=== PATIENT | female | born 1975 | race Caucasian/White ===

== ENCOUNTER 2019-07-30 10:03 | Emergency (ER) | payer MEDICARE ==
[2019-07-30 10:45] VITALS: BP 150/92
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
--- NOTE | 2019-08-02 07:22 | UC ---
- Progress Note Progress Note: Urine culture from July 30, 2019 comes back with the results of mixed a pond extended incubation suggest recent admission. Nursing to call patient and let them know we were unable to obtain a urine culture. If she continues to be symptomatic and have not had follow-up with another medical provider we would recommend resubmitting a urine for culture. Course/Dx - Diagnoses Provider Diagnoses: Soft tissue mass Discharge ED - Sign-Out/Discharge Documenting (check all that apply): Patient Departure All imaging exams completed and their final reports reviewed: No Studies - Discharge Plan Condition: Fair Disposition: HOME Patient Education Materials: Soft Tissue Mass (ED) Referrals: [facility] [Provider Group] Lev PAN,Mervin Harmon [Primary Care Provider] - Naeem George MD [Medical Doctor] - Additional Instructions: - Abnormal lymph nodes, cervical. Please contact primary physician for possible biopsy or continued monitoring - Urine sent for culture- will follow up in 2 days if results positive. Go to ER or return with increased pain, fever, chills, flank pain. - Follow up with DR. Ohara for urine tests due to past history of chronic UTI 's. - Billing Disposition and Condition Condition: FAIR Disposition: Home
== END 2019-07-30 12:29 | disposition home or self-care (01) ==
LOC: UCEAST 10:03
DX: M79.89 Other specified soft tissue disorders (principal); I25.2 Old myocardial infarction; Z87.891 Personal history of nicotine dependence; Z86.73 Personal history of transient ischemic attack (TIA), and cerebral infarction without residual deficits
CPT/HCPCS: 76536; 81003; 87086; 99211; G0463